=== PATIENT | female | born 1985 ===

== ENCOUNTER 2016-11-09 17:44 | Inpatient (IN) | payer OTHER ==
[2016-11-09 18:39] VITALS: BMI 26.5
[2016-11-09] MEDS ORDERED: Penicillin G 5 Million Unit Vial IVPB ONE ×2 (18:39→19:37)
[2016-11-09] MEDS ORDERED: Oxytocin 30 UNIT 500 ML IV PRN (18:41)
--- NOTE | 2016-11-09 18:44 | OBADHP ---
Datetime: 11/09/2016 18:22 Admit Comment, IP Provider: chief complaint- gush of fluid HPI 30 y/o at 37.2 wga with c/o gush of fluid at 4.30 pm and since then has been leaking f luid.Patient denies any contractions.Patient denies nausea, vomiting, headache. chest pain, shortness of breath course - care with a physician dr reese in [place] [facility] PMH denies PSH denies OBGYN HX ; NVDX2 Social hx denies tobacco,alcohol or illicit drug use Exam see exam section A/P 30 y/o at 37.2 wga with PROM. -Admit -see orders Pelvic Type - PN: Adequate Extremities - PN: Normal Abdomen - PN: Normal Back - PN: Normal Lungs - PN: Normal Heart - PN: Normal Neurologic - PN: Normal General - PN: Normal Weight - Estimated: 3400 Membranes, Provider: Ruptured Contraction Comments Provider: none Gestation - Est Wks by US: 37.2 Pool Provider: Positive Nitrazine Provider: Positive Ferning Provider: Positive IP Hx Assessment: The History has been Reviewed and is Current Vital Signs Provider: Reviewed; Within Normal Limits IP Chief Complaint: Suspected ruptured membranes FHR Category Provider Fetus A: Category I Dilatation, Provider: 2 Effacement, Provider: 50 Station, Provider: -2 Genitourinary Exam: Normal DTRs - PN: Normal EGA AdmitDate IP: 37.2 IP Adm Impression: , intrauterine ; No Active Labor; Ruptured Membranes IP Admit Plan: Admit to unit; Initiate labor protocol
[2016-11-09] MEDS: Lactated Ringer's 1,000 ML IV SCH (19:44)
[2016-11-09 19:56] LABS: BASO # 0.1 K/uL (0.0-0.2); BASO % 0.5 % (0.0-2.0); EOS # 0.2 K/uL (0.0-0.7); EOS % 1.8 % (0.0-4.0); HEMATOCRIT 31.4 % (34.0-47.0); LYMPH # 1.6 K/uL (1.0-4.3); LYMPH % 14.1 % (20.0-40.0); MEAN CELL VOLUME 68.4 fL (81.0-99.0); MEAN CORPUSCULAR HEMOGLOBIN 20.8 pg (27.0-31.0); MEAN CORPUSCULAR HGB CONC 30.5 g/dL (33.0-37.0); MEAN PLATELET VOLUME 7.7 fL (7.2-11.7); MONO # 0.6 K/uL (0.0-0.8); MONO % 5.5 % (0.0-10.0); RED CELL DISTRIBUTION WIDTH 18.3 % (11.5-14.5); WHITE BLOOD COUNT 11.5 K/uL (4.8-10.8)
[2016-11-09 20:01] LABS: CHLORIDE 98 mmol/L (98-107); SODIUM 133 mmol/L (132-148)
[2016-11-09 20:02] LABS: POTASSIUM 3.7 mmol/L (3.6-5.2)
[2016-11-09 20:04] LABS: ALKALINE PHOSPHATASE 181 U/L (38-126); ALT/SGPT 28 U/L (9-52); AST/SGOT 25 U/L (14-36); BILIRUBIN,TOTAL 0.4 mg/dL (0.2-1.3); BLOOD UREA NITROGEN 7 mg/dL (7-17); CALCIUM 8.5 mg/dl (8.6-10.4); CARBON DIOXIDE 22 mmol/L (22-30); GFR AFRICAN-AMERICAN > 60; GLUCOSE,RANDOM 69 mg/dL (65-105); TOTAL PROTEIN 6.7 g/dL (6.3-8.3)
[2016-11-09 20:07] LABS: URINE BACTERIA RARE (<OCC); URINE BILIRUBIN NEGATIVE (NEGATIVE); URINE BLOOD NEGATIVE (NEGATIVE); URINE COLOR Straw (YELLOW); URINE GLUCOSE (UA) NORMAL (Normal); URINE KETONE 1+ mg/dL (NEGATIVE); URINE LEUKOCYTE ESTERASE NEG Leu/uL (Negative); URINE PROTEIN NEGATIVE (NEGATIVE); URINE UROBILINOGEN NORMAL mg/dL (0.2-1.0); WBC URINE < 1 /hpf (0-5)
[2016-11-09] MEDS ORDERED: Oxytocin 30 UNIT 500 ML IV ONE (20:11)
[2016-11-10] MEDS ORDERED: Nalbuphine 20 mg/ml Inj (1 ml) IVP PRN (02:00)
[2016-11-10] MEDS: Lactated Ringer's 1,000 ML IV SCH (02:15)
[2016-11-10] MEDS ORDERED: Lidocaine 2% Inj (20ml) ONE (08:59)
[2016-11-10] MEDS ORDERED: Oxycodone/Acetaminophen 5/325 mg Tab PO PRN (09:22)
[2016-11-10] MEDS ORDERED: Influenza Virus Vaccine 45 mcg/0.5 ml Syr IM ONE (09:28)
[2016-11-10] MEDS: Multiple Vitamins Tab PO SCH (13:25)
[2016-11-10] MEDS: Benzocaine/Menthol 20%-0.5% Topical Spray (60 ml) TOP PRN (13:25)
--- NOTE | 2016-11-10 14:19 | OBDS ---
DELIVERY PERSONNEL Delivery Doctor: Meenakshi Rocha MD Silo Filler: Angélica Mcleod RN/ Jomar Cody RN MATERNAL INFORMATION Delivery Anesthesia: None Estimated Blood Loss (ml): 250 Placenta Cultured: No Maternal Complications: None Provider Comments: Uncomplicated vaginal delivery, live male infant, YOHANNES, weight 5lb 10oz, Apgars 9/ 9 over intact perienum Spontaneous delivery of placenta - grossly normal and intact; 3 vessels Cervix, vagina, perineum inspected - as above. Infant and mother bonded; both in stable condition. LABOR SUMMARY EDC: 11/28/2016 00:00 No. Babies in Womb: 1 Attempted: No Labor Anesthesia: None LABOR INFORMATION Reason for Induction: Not Applicable Onset of Labor: 11/10/2016 04:30 Complete Dilatation: 11/10/2016 08:40 Oxytocin: Augmentation Group B Beta Strep: Done, Result Unknown Antibiotics # of Doses: 4 Antibiotics Time of Last Dose: 0730 Steroids Given: None Reason Steroids Not Administered: Not Applicable MEMBRANES Membranes Rupture Method: Spontaneous Rupture of Membranes: 11/09/2016 16:30 Length of Rupture (hrs): 16.28 Amniotic Fluid Color: Clear Amniotic Fluid Amount: Small Amniotic Fluid Odor: Normal STAGES OF LABOR Stage 1 hrs: 4 Stage 1 min: 10 Stage 2 hrs: 0 Stage 2 min: 7 Stage 3 hrs: 0 Stage 3 min: 9 Total Time in Labor hrs: 4 Total Time in Labor min: 26 VAGINAL DELIVERY Episiotomy: None Laceration Extension: First Degree Laceration Type: Vaginal Laceration Repair: Yes Laceration Repair Note: 3-0 chromic, running interlocking Hemostasis assured. Patient tolerated procedure well Initial Vag Sponge Count: 10 Final Vag Sponge Count: 10 Initial Vag Sharps Count: 2 Final Vag Sharps Count: 2 Sponge Count Correct: Yes Sharps Count Correct: Yes Count Comment: Correct BABY A INFORMATION Infant Delivery Date/Time: 11/10/2016 08:47 Method of Delivery: Vaginal Born in Route : No : N/A Forceps: N/A Vacuum Extraction: N/A Shoulder Dystocia : No SHOULDER DYSTOCIA BABY A Delivery Date/Time: 11/10/2016 08:47 PRESENTATION/POSITION BABY A Presentation: Cephalic Cephalic Presentation: Vertex Vertex Position: Left Occipital Anterior Breech Presentation: N/A PLACENTA INFORMATION BABY A Placenta Delivery Time : 11/10/2016 08:56 Placenta Method of Delivery: Spontaneous Placenta Status: Delivered SCORES BABY A Heart Rate 1 min: >100 bpm Resp Effort 1 min: Good Cry Reflex Irritability 1 min: Cough or Sneeze or Pulls Away Muscle Tone 1 min: Active Motion Color 1 min: Body [place], Extremities Blue SCORE 1 MIN: 9 Heart Rate 5 min: >100 bpm Resp Effort 5 min: Good Cry Reflex Irritability 5 min: Cough or Sneeze or Pulls Away Muscle Tone 5 min: Active Motion Color 5 min: Body [place], Extremities Blue SCORE 5 MIN: 9 INFORMATION BABY A Gestational Age at Delivery: 37.0 Gestational Status: Term Outcome : Liveborn Condition : Stable Infant Sex: Male IDENTIFICATION/MEDS BABY A ID Band Number: [id number] ID Band Location: Left Leg; Left Arm Sensor Applied: Yes Sensor Number: [id number] Sensor Location : Cord Clamp Vitamin K Given : Not Given Erythromycin Given: Not Given WEIGHT/LENGTH BABY A Birthweight (gms): 2570 Infant Weight (lb): 5 Weight (oz): 11 Length Inches: 19.00 Infant Length cms: 48.3 CORD INFORMATION BABY A No. Cord Vessels: 3 Nuchal Cord : N/A Cord Blood Taken: Yes Infant Suction: Mouth; Nose
[2016-11-10 17:50] VITALS: RESP 20
[2016-11-11 00:28] VITALS: TEMP 97.7; O2SAT 98
[2016-11-11] MEDS: Multiple Vitamins Tab PO SCH (09:14)
--- NOTE | 2016-11-11 09:25 | OBPPN ---
Datetime: 11/11/2016 09:23 PP Pain Prov: Within normal limits PP Nausea Prov: Denies PP Flatus Prov: Yes PP BM Prov: No PP Breasts Prov: Normal PP Heart Prov: Normal PP Lungs Prov: Normal PP Abdomen/Uterus Prov: Normal PP Lochia Prov: Normal PP Vulva/Perineum Prov: Normal PP CVA Tenderness Prov: Normal PP Extremities Prov: Normal PP C/S Incision Prov: Not Applicable PP Progress Prov: Normal PP Impression Prov: Normal progression PP Plan Prov: Continue present management PP Progress Note Prov: S-patient reports that pain is controlled with percocet and motrin.she is benjamín erating regular diet.ambulating and voiding without difficulty O-VSS Afebrile Fundus firm and below umbilicus Extremities no calf tenderness A/P Patient s/p vaginal delivery ppd 1 doing well -continue routine PP care -check am cbc -encourage ambulation and po fluid intake Vital Signs Provider PP: Reviewed; Within Normal Limits
[2016-11-12 00:37] VITALS: BP 99/56; PULSE 68
[2016-11-12 07:24] LABS: BASO # 0.1 K/uL (0.0-0.2); BASO % 1.3 % (0.0-2.0); EOS # 0.4 K/uL (0.0-0.7); EOS % 4.1 % (0.0-4.0); HEMATOCRIT 29.7 % (34.0-47.0); LYMPH # 2.5 K/uL (1.0-4.3); MEAN CORPUSCULAR HEMOGLOBIN 21.6 pg (27.0-31.0); MEAN CORPUSCULAR HGB CONC 31.3 g/dL (33.0-37.0); MEAN PLATELET VOLUME 7.9 fL (7.2-11.7); MONO # 0.7 K/uL (0.0-0.8); MONO % 7.2 % (0.0-10.0); WHITE BLOOD COUNT 10.2 K/uL (4.8-10.8)
--- NOTE | 2016-11-12 07:31 | OBDCSUM ---
Datetime: 11/12/2016 07:30 Discharged to, Provider: Home Follow up at, Provider: [facility]wee Disch Instr Activity: Normal activity Disch Instr Diet: Regular Discharge Diagnosis, Provider: Term Delivered Follow up in weeks, Provider: clinic Disch Activity Restrictions: No exercising; No lifting; No driving; Minimize walking; Minimize stair -climbing; No sexual activity; Nothing in vagina - [place], tampons, douche Discharge Comment, Provider: no sex motrin prn f/u in 6week
--- NOTE | 2016-11-12 07:31 | OBPPN ---
Datetime: 11/12/2016 07:29 PP Pain Prov: Within normal limits PP Nausea Prov: Denies PP Flatus Prov: Yes PP Abdomen/Uterus Prov: Normal PP Lochia Prov: Normal PP Extremities Prov: Normal PP Comments Phys Exam Prov: fudus below umb ext mild edema,no calf ten PP Impression Prov: Normal progression PP Plan Prov: Discharge PP Progress Note Prov: pt was seen at bed side, pain under control,no n/v, tolerating deit,voiding,m in [place], flat[place]+ ppd#2 s/p dc home mno sex motrin prn f/u in 6weeks Vital Signs Provider PP: Reviewed; Within Normal Limits
[2016-11-12 07:34] LABS: MEAN CELL VOLUME 68.9 fL (81.0-99.0)
[2016-11-12] MEDS: Benzocaine/Menthol 20%-0.5% Topical Spray (60 ml) TOP PRN (09:56)
[2016-11-12] MEDS: Multiple Vitamins Tab PO SCH (09:57)
== END 2016-11-12 14:30 | disposition home or self-care (01) | DRG 775 ==
LOC: C.EROB 17:44 → C.4D 18:39 → C.4M 11-10 11:09
PROVIDERS: ADMIT Student in an Organized Health Care Education/Training Program; ATTEND Student in an Organized Health Care Education/Training Program
PROC: 10E0XZZ Delivery of Products of Conception, External Approach (ICD-10-PCS; principal; 2016-11-10)
PROC: 0HQ9XZZ Repair Perineum Skin, External Approach (ICD-10-PCS; 2016-11-10)
DX: O42.02 Full-term premature rupture of membranes, onset of labor within 24 hours of rupture (principal); O70.0 First degree perineal laceration during delivery; Z37.0 Single live birth; Z3A.37 37 weeks gestation of pregnancy